=== PATIENT | male | born 1990 | race Caucasian/White ===

== ENCOUNTER 2017-08-30 15:40 | Observation (INO) | payer OTHER ==
[2017-08-30] MEDS ORDERED: Sodium Chloride 0.9% 10 ML FLUSH Syringe IV PRN (16:17)
[2017-08-30 16:22] LABS: Mean Cell Volume 84.2 fl (78-100); Mean Corpuscular Hemoglobin 29.1 pg (26-32); Mean Platelet Volume 9.1 fl (6-9.5); Platelet Count 261 K/mm3 (150-450); Red Blood Count 5.49 M/mm3 (4.1-5.6); Red Cell Distribution Width 12.9 % (11.5-14.0); White Blood Count 6.2 K/mm3 (4.0-10.5)
[2017-08-30 16:47] LABS: ALBUMIN 4.9 g/dL (3.4-5.0); ALKALINE PHOSPHATASE 65 U/L (46-116); ANION GAP 15.7 MEQ/L (5-15); BLOOD UREA NITROGEN 13 mg/dL (9-20); CHLORIDE 105 mEq/L (98-107); Carbon Dioxide 26.7 mEq/L (21-32); Glucose 83 MG/DL (70-110); Potassium 4.1 mEq/L (3.5-5.1); SGOT/AST 28 U/L (15-37); SGPT/ALT 48 U/L (12-78); SODIUM 143 mEq/L (136-145); TROPONIN < 0.017 ng/ml (0.000-0.056); Total Protein 8.6 gm/dL (6.4-8.2)
[2017-08-30 17:11] LABS: Erythrocyte Sedimentation Rate 2 mm/hr (0-15)
--- NOTE | 2017-08-30 17:11 | XRAY ---
Indication: Tachycardia, short of breath, and diaphoresis. Comparison: January 05, 2017. PA/lateral chest again demonstrates normal heart, lungs, and bony thorax.
[2017-08-30] MEDS: Sodium Chloride 0.9% 1000 ML 1,000 ML IV SCH (17:22)
--- NOTE | 2017-08-30 18:45 | PCM.HP ---
History of Present Illness - Chief Complaint Chief Complaint: SOB, Diaphoresis, Tachycardia History of Present Illness: is a 27 year old male who saw LEONCIO Martin in clinic today c/o 1 week of diaphoresis, SOB, muscle rigidity and diffiulty walking. Of note he was treated over the last 6 weeks for recurrent urticaria with multiple doses of steroids. When he started having SOB he went to ER where some blood was drawn and he was discharged to home. Two days later, with persistent symptoms, he went to [facility] ER where reportedly a CT of the chest was negative for PE (reports requested x 4 today). He also had cardiac panel drawn which was reported by pt to be negative. He continues to be symtpomatic so came into the office today. His O2 sat was normal, HR 122, BP 160/100, afebrile. He has not had a fever throughout. He was first treated on 07/14/17 by our [facility] STATE ASSESSED PROPERTIES DIRECTOR with 20mg prednisone and celestone injection. He was treated also on 07/21, 07/26, and 07/28. He was then sent to dermatology. He went to [place] ER with urticaria on 08/16/17 and was treated with steroids there as well. He then had 2 steroid injections with the machinist supervisor outside on 08/18/17. - Review of Systems Constitutional: Weakness, Other (wt gain 5 lb in past 2-3 mo), No Fever Ears, Nose, & Throat: Other (some tunnel vision when winded. ?blurry vision at times) Respiratory: Short Of Breath Cardiac: Other (tachycardia) Genitourinary Symptoms: Other (brown urine while at ER and getting IV meds during one visit; at home nl urine) Musculoskeletal: Myalgias, Other (rigidity and cramps, diffuse) Neurological: Other (some vague presyncopal feelings) Medications & Allergies Home Medications: Home Medication List Ascorbic Acid [Vitamin C] 1,000 mg PO DAILY 08/30/17 [History Confirmed 08/30/17 ] Cyanocobalamin (Vitamin B-12) [B-12] 1,000 mcg PO DAILY 08/30/17 [History Confirmed 08/30/17] Cyproheptadine HCl 4 mg PO TID 08/30/17 [History Confirmed 08/30/17] Diazepam [Valium] 2 - 4 mg PO Q8H PRN 08/30/17 [History Confirmed 08/30/17] Doxepin HCl 25 - 75 mg PO QHS 08/30/17 [History Confirmed 08/30/17] Hydroxyzine HCl 25 mg [Atarax 25 mg] 25 - 75 mg PO QID PRN 08/30/17 [ History Confirmed 08/30/17] Magnesium 200 mg PO DAILY 08/30/17 [History Confirmed 08/30/17] Multivitamin [One-A-Day Essential] 1 each PO DAILY 08/30/17 [History Confirmed 08/30/17] Non-Formulary Drug [Non-Formulary Item] 2 cap PO DAILY 08/30/17 [History Confirmed 08/30/17] [place]-3 Fatty Acids/Fish Oil [Fish Oil 1,000 mg Capsule] 1 each PO DAILY [History Confirmed 08/30/17] Allergies/Adverse Reactions: Allergies Allergy/AdvReac Type Severity Reaction Status Date / Time No Known Drug Allergies Allergy Unverified 05/24/16 20:03 - Past Medical History Past Medical History: No Neurological History: No Pertinent History ENT History: No Pertinent History Cardiac History: No Pertinent History Respiratory History: No Pertinent History Endocrine Medical History: No Pertinent History Musculoskelatal History: No Pertinent History GI Medical History: Hernia History: No Pertinent History Pyscho-Social History: No Pertinent History Male Reproductive Disorders: No Pertinent History - Past Surgical History Past Surgical History: Yes Neuro Surgical History: No Pertinent History Cardiac History: No Pertinent History Respiratory Surgery: No Pertinent History GI Surgical History: Hernia Repair Genitourinary Surgical Hx: No Pertinent History Musculskeletal Surgical Hx: No Pertinent History Male Surgical History: No Pertinent History Other Surgical History: DEVIATED SEPTUM REPAIR 2014. HERNIA REPAIR IN STOMACH 2009 - Social History Smoking Status: Never smoker Exposure to second hand smoke: No Alcohol: None Drug Use: none - Physical Exam Vital Signs: Vital Signs - 24 hr Temp Pulse Resp BP Pulse Ox 08/30/17 16:26 98.6 F 108 H 24 160/96 97 General Appearance: mild distress, anxiety Neurologic Exam: alert, oriented x 3, cooperative, agitation (in office, not in hospital), other (reflexes very difficult to elicit due to diffuse rigidity) Respiratory Exam: normal breath sounds, lungs clear, No crackles/rales, No rhonchi, No wheezing Cardiovascular Exam: normal heart sounds, tachycardia, No murmur Gastrointestinal/Abdomen Exam: soft, normal bowel sounds, No tenderness, No distention Back Exam: normal inspection Extremity Exam: normal inspection (chest, biceps, calves nttp throughout. no edema/erythema), other (rigidity LE > UE), No pedal edema, No swelling Skin Exam: warm, diaphoresis (mild in hospital; dripping sweat in the office) Results - Labs Lab/Micro Results: Lab Results-Last 24 Hours 08/30/17 08/30/17 08/30/17 Range/Units 16:10 16:10 16:45 WBC 6.2 (4.0-10.5) K/mm3 RBC 5.49 (4.1-5.6) M/mm3 Hgb 16.0 (12.5-18.0) gm/dl Hct 46.2 (42-50) % MCV 84.2 (78-100) fl MCH 29.1 (26-32) pg MCHC 34.6 (32-36) g/dl RDW 12.9 (11.5-14.0) % Plt Count 261 (150-450) K/mm3 MPV 9.1 (6-9.5) fl ESR 2 (0-15) mm/hr Sodium 143 (136-145) mEq/L Potassium 4.1 (3.5-5.1) mEq/L Chloride 105 (98-107) mEq/L Carbon Dioxide 26.7 (21-32) mEq/L Anion Gap 15.7 H (5-15) MEQ/L BUN 13 (9-20) mg/dL Creatinine 1.05 (0.55-1.30) mg/dl Estimated GFR > 60 ML/MIN Glucose 83 (70-110) MG/DL Lactic Acid 1.3 (0.4-2.0) Calcium 10.0 (8.5-10.1) mg/dL Total Bilirubin 0.40 (0.2-1.0) mg/dL AST 28 (15-37) U/L ALT 48 (12-78) U/L Alkaline Phosphatase 65 (46-116) U/L Creatine Kinase 269 (39-308) U/L Troponin I < 0.017 (0.000-0.056) ng/ml Serum Total Protein 8.6 H (6.4-8.2) gm/dL Albumin 4.9 (3.4-5.0) g/dL - Radiology Impressions Radiology Exams & Impressions: Radiology Procedures Category Date Time Status CHEST 2 VIEWS (PA AND LAT) Routine Exams 08/30/17 16:06 Completed ECHO W/2D AND DOPPLER [US] Routine Exams 08/30/17 Ordered - Other Procedures and Tests Respiratory Therapy 08/30/17 16:05 EKG STAT Assessment/Plan (1) Shortness of breath Current Visit: Yes Status: Acute Assessment & Plan: Will speak with ER doctor if necessary to confirm no PE earlier this week. His O2 sats are good. 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 He is not immunocompromised or malnourished , is young, no cancer that we are aware of; will check for myasthenia gravis, HIV, syphillis. Echocardiogram in the morning. Code(s): R06.02 - SHORTNESS OF BREATH (2) Tachycardia Current Visit: Yes Status: Acute Assessment & Plan: on telemetry Code(s): R00.0 - TACHYCARDIA, UNSPECIFIED (3) Diaphoresis Current Visit: Yes Status: Acute Assessment & Plan: Considering serotonin syndrome, neuroleptic malignant syndrome, pheochromocytoma. Pheo less likely with no CANTU inthe past 4-5 days. It is difficult to decide if his reflexes are truly bradyreflexic or if I am just unable to get a satisfactory reflex due to his muscle rigidity. I certainly cannot elicit any clonus, making serotonin syndrome less likely (per Rob criteria). Labs are normal so far at this time. consulting neurology, thank you. Code(s): R61 - GENERALIZED HYPERHIDROSIS (4) Muscle rigidity Current Visit: Yes Status: Acute Assessment & Plan: As above, likely side effect of steroid use. Code(s): R29.898 - OTH SYMPTOMS AND SIGNS INVOLVING THE MUSCULOSKELETAL SYSTEM
[2017-08-30 19:52] LABS: INR 1.08 (0.8-3.0)
[2017-08-30 19:55] LABS: PTT 34.7 SECONDS (24.1-36.1)
[2017-08-30 23:11] LABS: Bilirubin NEGATIVE (NEGATIVE); Blood NEGATIVE Ery/ul (0-5); COMPLETE URINE MICROSCOPIC? NO; Collection Type VOID; Glucose NEGATIVE (NEGATIVE); Leukocyte Esterase NEGATIVE (NEGATIVE)
[2017-08-30 23:23] LABS: VBG BASE EXCESS 1.6 (-2.0-2.0); VBG CARBOXYHEMOGLOBIN 0.9 % T HGB (0.0-6.9); VBG HCO3- 27.7 meq/L (22-28); VBG HEMOGLOBIN 15.8; VBG O2 SATURATION 42.1 (95-100); VBG POTASSIUM 4.4 (3.5-5.1); VBG pH 7.37 (7.32-7.42)
[2017-08-31] MEDS: Sodium Chloride 0.9% 1000 ML 1,000 ML IV SCH ×2 (01:24→10:28)
[2017-08-31] MEDS: Sodium Chloride 0.9% 10 ML FLUSH Syringe IV SCH (01:27)
[2017-08-31] MEDS ORDERED: Ativan 2 MG/1 ML VIAL IV ONE ×2 (08:13→13:49)
--- NOTE | 2017-08-31 08:24 | PCM.NOTE ---
Date and Time: 08/31/17818 Subjective Assessment: Pt with HR down to 70s last night while sleeping; up to 130 while up urinating. He is eating breakfast this morning, no trouble swallowing, but hard to eat due to muscle stiffness in his hands. He did not sleep last night. c/o muscle pain in legs this morning, he thinks due to being stiff all night. - Review of Systems Constitutional: No Fever Musculoskeletal: Myalgias, Other (stiff muscles) Skin: Other (diaphoresis) Objective Exam General Appearance: mild distress, alert Neurologic Exam: oriented x 3, cooperative Skin Exam: normal color, warm, diaphoresis Respiratory Exam: normal breath sounds, lungs clear, No crackles/rales, No rhonchi, No wheezing Cardiovascular Exam: regular rate/rhythm, normal heart sounds, No murmur Gastrointestinal/Abdomen Exam: normal bowel sounds (normal to hyperactive) Extremity Exam: other (legs held at partial flexion bilat. no edema.) Back Exam: normal inspection OBJECTIVE DATA Vital Signs: Vital Signs - 24 hr Temp Pulse Resp BP Pulse Ox 08/31/17 07:01 97 H 20 100 08/31/17 04:00 71 21 134/59 95 08/31/17 00:00 99 H 24 143/88 98 08/30/17 20:00 97.2 F 111 H 34 H 156/107 96 08/30/17 16:26 98.6 F 108 H 24 160/96 97 Oxygen-Last 24 hours O2 Percentage 4 Liters = 36% O2 Percentage 4 Liters = 36% Pain Assessment - Last Documented Pain Intensity 3 Pain Scale Used 0-10 Pain Scale Intake and Output: Intake & Output 08/28/17 08/29/17 08/30/17 08/31/17 11:59 11:59 11:59 11:59 Intake Total 2036 Output Total 325 Balance 1711 Weight 104.326 kg Lab Results: Lab Results-Last 24 Hours 08/30/17 08/30/17 08/30/17 Range/Units 16:10 16:10 16:45 WBC 6.2 (4.0-10.5) K/mm3 RBC 5.49 (4.1-5.6) M/mm3 Hgb 16.0 (12.5-18.0) gm/dl Hct 46.2 (42-50) % MCV 84.2 (78-100) fl MCH 29.1 (26-32) pg MCHC 34.6 (32-36) g/dl RDW 12.9 (11.5-14.0) % Plt Count 261 (150-450) K/mm3 MPV 9.1 (6-9.5) fl ESR 2 (0-15) mm/hr INR (0.8-3.0) APTT (24.1-36.1) SECONDS VBG pH (7.32-7.42) VBG pCO2 at Pat Temp (42-55) mm/Hg VBG pO2 at Pat Temp (25-40) mm/Hg VBG HCO3 (22-28) meq/L VBG O2 Sat (Ivonne) (95-100) VBG Base Excess (-2.0-2.0) VBG Hemoglobin VBG Carboxyhemoglobin (0.0-6.9) % T HGB POC Potassium (3.5-5.1) Sodium 143 (136-145) mEq/L Potassium 4.1 (3.5-5.1) mEq/L Chloride 105 (98-107) mEq/L Carbon Dioxide 26.7 (21-32) mEq/L Anion Gap 15.7 H (5-15) MEQ/L BUN 13 (9-20) mg/dL Creatinine 1.05 (0.55-1.30) mg/dl Estimated GFR > 60 ML/MIN Glucose 83 (70-110) MG/DL Lactic Acid 1.3 (0.4-2.0) Calcium 10.0 (8.5-10.1) mg/dL Total Bilirubin 0.40 (0.2-1.0) mg/dL AST 28 (15-37) U/L ALT 48 (12-78) U/L Alkaline Phosphatase 65 (46-116) U/L Creatine Kinase 269 (39-308) U/L Troponin I < 0.017 (0.000-0.056) ng/ml Serum Total Protein 8.6 H (6.4-8.2) gm/dL Albumin 4.9 (3.4-5.0) g/dL Ur Collection Type Urine Color (YELLOW) Urine Appearance (CLEAR) Urine pH (5-6) Ur Specific [place] (1.005-1.025) Urine Protein (Negative) Urine Ketones (NEGATIVE) Urine Blood (0-5) Cory/ul Urine Nitrite (NEGATIVE) Urine Bilirubin (NEGATIVE) Urine Urobilinogen (0-1) mg/dL Ur Leukocyte Esterase (NEGATIVE) Urine Glucose (NEGATIVE) mg/dL Specimen Received 08/30/17 08/30/17 08/30/17 Range/Units 19:27 23:05 23:08 WBC (4.0-10.5) K/mm3 RBC (4.1-5.6) M/mm3 Hgb (12.5-18.0) gm/dl Hct (42-50) % MCV (78-100) fl MCH (26-32) pg MCHC (32-36) g/dl RDW (11.5-14.0) % Plt Count (150-450) K/mm3 MPV (6-9.5) fl ESR (0-15) mm/hr INR 1.08 (0.8-3.0) APTT 34.7 (24.1-36.1) SECONDS VBG pH 7.37 (7.32-7.42) VBG pCO2 at Pat Temp 48 (42-55) mm/Hg VBG pO2 at Pat Temp 22 L (25-40) mm/Hg VBG HCO3 27.7 (22-28) meq/L VBG O2 Sat (Ivonne) 42.1 L (95-100) VBG Base Excess 1.6 (-2.0-2.0) VBG Hemoglobin 15.8 VBG Carboxyhemoglobin 0.9 (0.0-6.9) % T HGB POC Potassium 4.4 (3.5-5.1) Sodium (136-145) mEq/L Potassium (3.5-5.1) mEq/L Chloride (98-107) mEq/L Carbon Dioxide (21-32) mEq/L Anion Gap (5-15) MEQ/L BUN (9-20) mg/dL Creatinine (0.55-1.30) mg/dl Estimated GFR ML/MIN Glucose (70-110) MG/DL Lactic Acid (0.4-2.0) Calcium (8.5-10.1) mg/dL Total Bilirubin (0.2-1.0) mg/dL AST (15-37) U/L ALT (12-78) U/L Alkaline Phosphatase (46-116) U/L Creatine Kinase (39-308) U/L Troponin I (0.000-0.056) ng/ml Serum Total Protein (6.4-8.2) gm/dL Albumin (3.4-5.0) g/dL Ur Collection Type VOID Urine Color YELLOW (YELLOW) Urine Appearance CLEAR (CLEAR) Urine pH 6.0 (5-6) Ur Specific [place] 1.015 (1.005-1.025) Urine Protein NEGATIVE (Negative) Urine Ketones NEGATIVE (NEGATIVE) Urine Blood NEGATIVE (0-5) Cory/ul Urine Nitrite NEGATIVE (NEGATIVE) Urine Bilirubin NEGATIVE (NEGATIVE) Urine Urobilinogen NORMAL (0-1) mg/dL Ur Leukocyte Esterase NEGATIVE (NEGATIVE) Urine Glucose NEGATIVE (NEGATIVE) mg/dL Specimen Received 08/30/17 2200 Radiology Exams: Radiology Procedures Category Date Time Status CHEST 2 VIEWS (PA AND LAT) Routine Exams 08/30/17 16:06 Completed ECHO W/2D AND DOPPLER [US] Routine Exams 08/31/17 Taken Assessment/Plan (1) Muscle rigidity Current Visit: Yes Status: Acute Assessment & Plan: Neurology has been consulted, thank you very much, with unclear picture and wide differential. Labs pending for Mg, HIV. Will do LP today and draw blood for paraneoplastic panel, to be sent to [facility] (will get info for our lab on what precisely to draw). Discussed with pt that steroids may be playing a part but we need to rule out underlying process including autoimmune dz and cancer. He did have a positive DNase-B Ab test that was positive from his student support advisor. My plan is for teleneurology to follow here daily as we have no outside neurologist. I am certainly willing to transfer this patient to a higher level of care at any time, but initially I had to admit here as pt had already been to outside hospitals with no further workup ordered. Code(s): R29.898 - OTH SYMPTOMS AND SIGNS INVOLVING THE MUSCULOSKELETAL SYSTEM (2) Shortness of breath Current Visit: Yes Status: Acute Assessment & Plan: PFT done by pulmonary at bedside, thank you. Venous blood gas collected last night. CT from outside hospital was negative for PE last week (pt had same sx) . Echo done this morning, await the reading by outside cardiology. Code(s): R06.02 - SHORTNESS OF BREATH (3) Tachycardia Current Visit: Yes Status: Acute Assessment & Plan: HR was 109 when I entered the room; 127 when I finished speaking with him. Code(s): R00.0 - TACHYCARDIA, UNSPECIFIED (4) Diaphoresis Current Visit: Yes Status: Acute Assessment & Plan: as below Code(s): R61 - GENERALIZED HYPERHIDROSIS
[2017-08-31] MEDS ORDERED: Ativan 2 MG/1 ML VIAL ONE (10:27)
[2017-08-31] MEDS: Ativan 1 MG PO PRN ×2 (10:36→20:31)
[2017-08-31] MEDS ORDERED: Sodium Chloride 0.9% 1000 ML 1,000 ML IV STA (10:50)
--- NOTE | 2017-08-31 15:13 | ECHO ---
DATE OF TEST: 08/31/2017 INDICATION: Tachypnea. FINDINGS: 1) Technically difficult study. 2) Normal left ventricular wall thickness and cavity size with normal left ventricular systolic function. Overall left ventricular ejection fraction is 60-65%. No wall motion abnormalities were noted. Left ventricular inflow Doppler examination is normal for patient's age. Right ventricle is grossly normal in size and systolic function. Atria appears to be within normal limits in size. Mitral valve is grossly normal. No mitral regurgitation was detected. 3) Tricuspid valve is grossly normal. Aortic valve is not well visualized but valve excursion is normal. No aortic insufficiency was noted. Pulmonic valve not visualized. 4) No pericardial effusion. IMPRESSION: 1) TECHNICALLY DIFFICULT STUDY. 2) NORMAL LEFT VENTRICULAR SIZE AND SYSTOLIC FUNCTION OVERALL LEFT VENTRICULAR EJECTION FRACTION IS 60-65% 3) NORMAL DIASTOLIC FUNCTION. 4) NO SIGNIFICANT VALVULAR DISEASE.
[2017-09-01] MEDS: Ativan 1 MG PO PRN ×2 (03:07→13:45)
[2017-09-01] MEDS: Sodium Chloride 0.9% 10 ML FLUSH Syringe IV SCH (03:08)
[2017-09-01] MEDS: Sodium Chloride 0.9% 1000 ML 1,000 ML IV SCH ×2 (03:58→13:45)
[2017-09-01 08:34] LABS: BASOPHIL % 0.2 % (0.0-0.4); Eosinophil % 2.8 % (0.00-5.0); Granulocytes % 63.7 % (36.0-66.0); Lymphocytes % 24.6 % (24.0-44.0); Mean Cell Volume 85.3 fl (78-100); Mean Corpuscular Hemoglobin 29.3 pg (26-32); Mean Platelet Volume 8.7 fl (6-9.5); Monocytes % 8.7 % (0.0-12.0); Platelet Count 216 K/mm3 (150-450); Red Blood Count 4.84 M/mm3 (4.1-5.6); Red Cell Distribution Width 13.1 % (11.5-14.0); White Blood Count 6.1 K/mm3 (4.0-10.5)
[2017-09-01 09:41] LABS: ALBUMIN 3.9 g/dL (3.4-5.0); ALKALINE PHOSPHATASE 58 U/L (46-116); ANION GAP 15.2 MEQ/L (5-15); BLOOD UREA NITROGEN 12 mg/dL (9-20); CHLORIDE 104 mEq/L (98-107); Carbon Dioxide 25.2 mEq/L (21-32); Glucose 84 MG/DL (70-110); Potassium 3.9 mEq/L (3.5-5.1); SGOT/AST 67 U/L (15-37); SGPT/ALT 53 U/L (12-78); SODIUM 141 mEq/L (136-145); Total Protein 7.2 gm/dL (6.4-8.2)
--- NOTE | 2017-09-01 12:17 | PCM.DS ---
Discharge Summary Date of Admission: 08/30/17 15:40 Admitting Physician: LICO FLANAGAN Consults: Consults on Case 08/30/17 18:30 Consult Neurology ROUTINE Primary Care Provider: SHELLIE LEVI Allergies Allergies No Known Drug Allergies Allergy (Unverified 05/24/16 20:03) Hospital Summary - Hospital Course Hospital Course: Pt admitted from office c/o 1 week of muscle stiffness (impedes walking, eating , and urinating), SOB, tachycardia, and extreme diaphoresis. He had been treated with steroids over the past 6 weeks a total of 6 times (4 IM injections and 2 po courses) at our office, [facility], and Dr. Patel (dermatology ). In observation here we consulted with teleneurology and have checked for underlying disorders including paraneoplastic syndromes, Myasthenia gravis, and HIV. He appears to have some degree of autonomic dysfunction. His labs so far have been unremarkable aside from one elevated rheumatological lab from Dr. patel's office and a mildly elevated TSH. He has been symptomatically better with ativan. he remains somewhat stiff, much less diaphoretic, intermittently tachycardic ( HR from 70s to 130). He is able to eat with some difficulty (due to hand stiffness) and urinate well as the stiffness improves. The teleneurologist recommended he be transferred for neurological hands-on evaluation so he is being transferred up to [facility]. - Vitals & Intake/Output Vital Signs: Vital Signs Temperature 97.9 F 09/01/17 08:31 Pulse Rate 75 09/01/17 08:31 Respiratory Rate 20 09/01/17 08:31 Blood Pressure 104/62 09/01/17 08:31 O2 Sat by Pulse Oximetry 98 09/01/17 08:31 Oxygen-Last Documented O2 Percentage 4 Liters = 36% Intake & Output: Intake & Output 08/30/17 08/31/17 09/01/17 09/02/17 11:59 11:59 11:59 11:59 Intake Total 2036 4617 Output Total 325 3225 Balance 1711 1392 Weight 104.326 kg - Lab Result Diagrams: 09/01/17 08:25 09/01/17 08:25 Lab Results-Last 24 Hrs: Lab Results-Last 24 Hours 09/01/17 09/01/17 Range/Units 08:25 08:25 WBC 6.1 (4.0-10.5) K/mm3 RBC 4.84 (4.1-5.6) M/mm3 Hgb 14.2 (12.5-18.0) gm/dl Hct 41.3 L (42-50) % MCV 85.3 (78-100) fl MCH 29.3 (26-32) pg MCHC 34.4 (32-36) g/dl RDW 13.1 (11.5-14.0) % Plt Count 216 (150-450) K/mm3 MPV 8.7 (6-9.5) fl Gran % 63.7 (36.0-66.0) % Lymphocytes % 24.6 (24.0-44.0) % Monocytes % 8.7 (0.0-12.0) % Eosinophils % 2.8 (0.00-5.0) % Basophils % 0.2 (0.0-0.4) % Basophils # 0.01 (0-0.4) Sodium 141 (136-145) mEq/L Potassium 3.9 (3.5-5.1) mEq/L Chloride 104 (98-107) mEq/L Carbon Dioxide 25.2 (21-32) mEq/L Anion Gap 15.2 H (5-15) MEQ/L BUN 12 (9-20) mg/dL Creatinine 0.83 (0.55-1.30) mg/dl Estimated GFR > 60 ML/MIN Glucose 84 (70-110) MG/DL Calcium 8.9 (8.5-10.1) mg/dL Total Bilirubin 0.80 (0.2-1.0) mg/dL AST 67 H (15-37) U/L ALT 53 (12-78) U/L Alkaline Phosphatase 58 (46-116) U/L Serum Total Protein 7.2 (6.4-8.2) gm/dL Albumin 3.9 (3.4-5.0) g/dL Micro Results-Entire Visit: Microbiology 08/30/17 19:27 Blood Culture - Preliminary Blood NO GROWTH TO DATE 08/30/17 16:18 Blood Culture - Preliminary Blood NO GROWTH TO DATE - Radiology Exams Ordered Rad Exams-Entire Visit: Radiology Procedures Category Date Time Status CHEST 2 VIEWS (PA AND LAT) Routine Exams 08/30/17 16:06 Completed ECHO W/2D AND DOPPLER [US] Routine Exams 08/31/17 Draft - Procedures and Test Procedures and Tests throughout Hospitalization: Therapy Orders & Screens 08/30/17 16:05 EKG STAT Comment: Diagnosis: tachycardia,diaphoresis,sob 08/31/17 03:15 PFT-Simple Spirometry ONCE Comment: Reason For Exam: Diagnosis: SOB, Diaphoresis, Tachycardia 08/31/17 07:00 Oxygen NASAL CANNULA 3 lpm Comment: Diagnosis: SOB, Diaphoresis, Tachycardia Discharge Exam General Appearance: no apparent distress, alert Neurologic Exam: oriented x 3, cooperative Skin Exam: normal color, warm, diaphoresis (very mild diaphoresis) Eye Exam: eyes nml inspection Respiratory Exam: normal breath sounds, lungs clear, No crackles/rales, No rhonchi, No wheezing Cardiovascular Exam: regular rate/rhythm, normal heart sounds, No murmur Gastrointestinal/Abdomen Exam: soft (increased muscle tone), normal bowel sounds , No tenderness Extremity Exam: other (hyperreflexic today, patellar reflexes. Unable to elicit clonus d/t stiffness. 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 Initially I thought he may have some serotonin syndrome with recent TCA started but I think this is less likely (see neurology notes at initial consultation). Somewhat better with ativan. Without ativan is is unable to sleep. Will need to see neurology in consultation, possibly also rheumatology. (2) Shortness of breath Current Visit: Yes Status: Acute Assessment & Plan: Improved, but it does worsen with activity. (3) Tachycardia Current Visit: Yes Status: Acute Assessment & Plan: intermittent. (4) Diaphoresis Current Visit: Yes Status: Acute Assessment & Plan: improved. - Discharge Disposition: DC TO [facility] Condition: Stable Prescriptions: No Action Hydroxyzine HCl 25 mg [Atarax 25 mg] 25 - 75 mg PO QID PRN PRN Reason: Itching Doxepin HCl 25 - 75 mg PO QHS Diazepam [Valium] 2 - 4 mg PO Q8H PRN PRN Reason: Anxiety Cyproheptadine HCl 4 mg PO TID [place]-3 Fatty Acids/Fish Oil [Fish Oil 1,000 mg Capsule] 1 each PO DAILY Magnesium 200 mg PO DAILY Ascorbic Acid [Vitamin C] 1,000 mg PO DAILY Multivitamin [One-A-Day Essential] 1 each PO DAILY Cyanocobalamin (Vitamin B-12) [B-12] 1,000 mcg PO DAILY Non-Formulary Drug [Non-Formulary Item] 2 cap PO DAILY Follow up with: SHELLIE LEVI NP [Primary Care Provider] - 1 Week
[2017-09-01 12:40] VITALS: BP 147/96; PULSE 93; O2SAT 97
[2017-09-02 13:18] LABS: Dopamine 24hr calculation 545.5 mcg/24hr (65.0-400.0); Epinephrine 24hr calculation 41.2 mcg/24hr (0.0-22.0); Norepinephrine 24hr Calc. 151.4 mcg/24hr (12.0-85.0); U CREATININE G 24 HR 2.77 g/24 h (1.50-2.00); Ur.Epinephrine Concentration 14.2 mcg/L; Ur.Norepinephrine Con. 52.2 mcg/L; Urine Dopamine Concentration 188.1 mcg/L
[2017-09-02 18:47] LABS: 24 HR SPEC COLL VALIDATION INT See Result Note:
[2017-09-06 16:28] LABS: Metanephrine 24hr Urine 432 ug/d (62-207)
== END 2017-09-01 14:05 | disposition short-term general hospital (02) ==
LOC: MED SURG 15:40 → ICU 15:40 → UNDOADMOB 15:40
PROVIDERS: ADMIT Family Medicine; ATTEND Family Medicine
DX: R29.898 Other symptoms and signs involving the musculoskeletal system (principal); R06.02 Shortness of breath; R61 Generalized hyperhidrosis; R00.0 Tachycardia, unspecified
CPT/HCPCS: 36415; 71020; 80053; 81002; 82024; 82380; 82550; 82805; 83519; 83605; 83835; 84484; 85025; 85027; 85060; 85610; 85652; 85730; 86592; 86701; 86702; 87040; 87389; 93005; 93306; 94010; G0378; J2060; A9270-GY